=== PATIENT | female | born 1930 | race Caucasian/White ===

== ENCOUNTER 2018-06-18 05:06 | Emergency (ER) | payer OTHER ==
[2018-06-18] MEDS ORDERED: NS 500 ML IV ONE (05:18)
[2018-06-18] MEDS ORDERED: ASPIRIN 81 MG CHEWABLE TAB ONE (05:23)
[2018-06-18 05:27] LABS: PLATELET COUNT 180 10^3/uL (150-400)
[2018-06-18] MEDS ORDERED: ASPIRIN 81 MG CHEWABLE TAB PO ONE (05:27)
--- NOTE | 2018-06-18 06:22 | EDPHY ---
H & P Stated Complaint: via EMS for tachycardia and dizziness. Pt denies CP, SOB. DNR. Time Seen by Provider: 06/18/18 05:13 HPI/ROS: HPI The patient presents with palpitations which began at about 2:00 a.m. This morning and awoke her from sleep. These have been constant, associated with dizziness which she describes as a lightheaded sensation. She checked her heart rate at home and it was about 140 so this prompted her to call 911. A few months ago she had some similar symptoms that resolved on their own. She has not had any chest pain, shortness of breath. She thinks over the last few days she may have over exerted herself by going to the grocery store and doing more shopping than usual. She has no prior history of this otherwise. She has a history of possible rheumatic heart disease with some mitral valve regurgitation per her report. She is not on any medications. She uses a walker at baseline.. REVIEW OF SYSTEMS 10 systems were reviewed and negative with the exception of the elements mentioned in the history of present illness. PMHx: Reported mitral valve regurgitation, possibly related to rheumatic heart disease Soc Hx: Resides at an assisted living facility PHYSICAL General Appearance: Alert, no distress Eyes: Pupils equal and round no pallor or injection ENT, Mouth: Mucous membranes moist Respiratory: There are no retractions, lungs are clear to auscultation Cardiovascular: Regular rate and rhythm , murmur present Gastrointestinal: Abdomen is soft and non-tender, no masses, bowel sounds normal Neurological: A&O, moves all extremities Skin: Warm and dry, no rashes Musculoskeletal: Neck is supple non tender Extremities: symmetrical, full range of motion Psychiatric: Patient is oriented X 3, there is no agitation Source: Patient, EMS Exam Limitations: No limitations - Personal History Current Tetanus/Diphtheria Vaccine: Unsure Current Tetanus Diphtheria and Acellular Pertussis (TDAP): Unsure - Medical/Surgical History Hx Asthma: No Hx Chronic Respiratory Disease: No Hx Diabetes: No Hx Cardiac Disease: Yes Hx Renal Disease: No Hx Cirrhosis: No Hx Alcoholism: No Hx HIV/AIDS: No Hx Splenectomy or Spleen Trauma: No Other PMH: Mitral valve, arthritis, appendectomy, nasal reconstruction, kidney stone, , tooth extraction, uterine fibroid, T12 compressed fx. - Social History Smoking Status: Never smoked Constitutional: Initial Vital Signs Temperature (C) 36.6 C 06/18/18 05:11 Heart Rate 135 H 06/18/18 05:11 Respiratory Rate 18 06/18/18 05:11 Blood Pressure 158/102 H 06/18/18 05:11 O2 Sat (%) 96 06/18/18 05:11 O2 Delivery Mode Room Air Allergies/Adverse Reactions: No Known Allergies Allergy (Unverified 06/18/18 05:11) Home Medications: Medication Instructions Recorded Acetaminophen [Tylenol] 06/18/18 Apixaban [Eliquis] 2.5 mg PO BID #60 tab 06/18/18 Medical Decision Making - Diagnostics EKG Interpretation: EKG: Complete interpretation has been separately recorded in the [facility] archive. Summary impression: Atrial flutter with rate of 135 Repeat EKG: Complete interpretation has been separately recorded in the [facility] archive. Summary impression: Normal sinus rhythm with rate of 85 Imaging Results: Chest x-ray single view shows no cardiomegaly, no infiltrate, interpreted by me , radiology interpretation pending. Imaging: I viewed and interpreted images myself Differential Diagnosis: 88-year-old female with reported rheumatic heart disease resulting in mitral valve regurgitation presents from home with palpitations and dizziness, brought in by ambulance. EKG demonstrates atrial flutter. Patient's blood pressure is stable and she is experiencing mild dizziness. She is DNR with limited interventions as reported on her MOST form. Chest x-ray, basic labs checked in all unremarkable. Patient given small fluid bolus and spontaneously converted into a normal sinus rhythm which appeared nonischemic on repeat EKG. She felt well after this. I have calculated her chads Vasc score at 3. I have consulted with the on-call hvac field service technician Dr. Stark. He does recommend initiating Eliquis and having the patient follow up as an outpatient in the cardiology clinic. The patient has not had frequent falls though she does use a walker. I feel it is reasonable to initiate this medication and have her follow up with her primary care doctor as well as Dr. Stark. I spoke with the patient, and she does not want to start any anticoagulation. In general she does not like taking medication, she is worried that she may fall and have bleeding complication. I explained that without Eliquis she is at higher risk of stroke. She accepts this risk at this time and given her goals of care I feel this is reasonable. She would like to follow up with her primary care physician to talk further about - Data Points Laboratory Results: Laboratory Results 06/18/18 04:15 06/18/18 04:15 06/18/18 06/18/18 06/18/18 05:15 04:15 04:15 WBC 6.37 10^3/uL 10^3/uL (3.80-9.50) RBC 5.18 10^6/uL 10^6/uL (4.18-5.33) Hgb 14.9 g/dL g/dL (12.6-16.3) Hct 46.3 % % (38.0-47.0) MCV 89.4 fL fL (81.5-99.8) MCH 28.8 pg pg (27.9-34.1) MCHC 32.2 g/dL L g/dL (32.4-36.7) RDW 12.8 % % (11.5-15.2) Plt Count 180 10^3/uL 10^3/uL (150-400) MPV 11.1 fL fL (8.7-11.7) Neut % (Auto) 72.9 % % (39.3-74.2) Lymph % (Auto) 17.0 % % (15.0-45.0) [place] % (Auto) 7.5 % % (4.5-13.0) Eos % (Auto) 1.7 % % (0.6-7.6) Baso % (Auto) 0.6 % % (0.3-1.7) Nucleat RBC Rel Count 0.0 % % (0.0-0.2) Absolute Neuts (auto) 4.64 10^3/uL 10^3/uL (1.70-6.50) Absolute Lymphs (auto) 1.08 10^3/uL 10^3/uL (1.00-3.00) Absolute Monos (auto) 0.48 10^3/uL 10^3/uL (0.30-0.80) Absolute Eos (auto) 0.11 10^3/uL 10^3/uL (0.03-0.40) Absolute Basos (auto) 0.04 10^3/uL 10^3/uL (0.02-0.10) Absolute Nucleated RBC 0.00 10^3/uL 10^3/uL (0-0.01) Immature Gran % 0.3 % % (0.0-1.1) Immature Gran # 0.02 10^3/uL 10^3/uL (0.00-0.10) D-Dimer Sodium 138 mEq/L mEq/L (135-145) Potassium 3.8 mEq/L mEq/L (3.5-5.2) Chloride 101 mEq/L mEq/L (97-110) Carbon Dioxide 25 mEq/l mEq/l (22-31) Anion Gap 12 mEq/L mEq/L (6-14) BUN 18 mg/dL mg/dL (7-23) Creatinine 1.1 mg/dL H mg/dL (0.6-1.0) Estimated GFR 47 Glucose 119 mg/dL H mg/dL (70-100) Calcium 9.9 mg/dL mg/dL (8.5-10.4) POC Troponin I 0.01 ng/mL ng/mL (0.00-0.08) NT-Pro-B Natriuret Pep 285 pg/mL pg/mL (0-450) 06/18/18 04:00 WBC RBC Hgb Hct MCV MCH MCHC RDW Plt Count MPV Neut % (Auto) Lymph % (Auto) [place] % (Auto) Eos % (Auto) Baso % (Auto) Nucleat RBC Rel Count Absolute Neuts (auto) Absolute Lymphs (auto) Absolute Monos (auto) Absolute Eos (auto) Absolute Basos (auto) Absolute Nucleated RBC Immature Gran % Immature Gran # D-Dimer 1.97 ug/mLFEU H ug/mLFEU (0.00-0.50) Sodium Potassium Chloride Carbon Dioxide Anion Gap BUN Creatinine Estimated GFR Glucose Calcium POC Troponin I NT-Pro-B Natriuret Pep Medications Given: Discontinued Medications Aspirin (Aspirin) 324 mg PO EDNOW ONE Stop: 06/18/18 05:28 Last Admin: 06/18/18 05:28 Dose: 324 mg Sodium Chloride (Ns) 500 mls @ 0 mls/hr IV EDNOW ONE; Wide Open PRN Reason: Protocol Stop: 06/18/18 05:19 Last Admin: 06/18/18 05:27 Dose: 500 mls Point of Care Test Results: Chemistry 06/18/18 05:15 POC Troponin I 0.01 ng/mL ng/mL (0.00-0.08) Departure - Departure Disposition: Home, Routine, Self-Care Clinical Impression: Atrial flutter Qualifiers: Atrial flutter type: typical Qualified Code(s): I48.3 - Typical atrial flutter Condition: Good Instructions: Atrial Flutter (ED) Additional Instructions: I would like for you to follow up with your primary care doctor and the hvac field service technician I have listed below for further evaluation of your palpitations. It is recommended at this time that you start a blood thinning medication or anticoagulant for prevention of stroke. If you do not want to take this, this is your choice. Referrals: Sundar Stark MD [Medical Doctor] - As per Instructions FERNANDO CALL [Non Staff Provider ()] - As per Instructions Prescriptions: Apixaban [Eliquis] 2.5 mg PO BID #60 tab
[2018-06-18 06:31] VITALS: BP 185/86
--- NOTE | 2018-06-18 22:56 | CPEKG ---
Test Reason : OPEN Blood Pressure : / mmHG Vent. Rate : 135 BPM Atrial Rate : 136 BPM P-R Int : 072 ms QRS Dur : 069 ms QT Int : 291 ms P-R-T Axes : -60 015 114 degrees QTc Int : 437 ms Atrial flutter with varied AV block, Anterior infarct, old Probable RV involvement, suggest recording right precordial leads Confirmed by Mariposa Douglas ([id number]) on 06/18/2018 10:55:41 PM Referred By: Mariposa Douglas Confirmed By:Mariposa Douglas
--- NOTE | 2018-06-21 07:41 | CPEKG ---
Test Reason : OPEN Blood Pressure : / mmHG Vent. Rate : 085 BPM Atrial Rate : 085 BPM P-R Int : 204 ms QRS Dur : 070 ms QT Int : 381 ms P-R-T Axes : 064 010 060 degrees QTc Int : 453 ms Sinus rhythm Atrial premature complex Anteroseptal infarct, old Confirmed by Mariposa Douglas ([id number]) on 06/21/2018 7:40:34 AM Referred By: Mariposa Douglas Confirmed By:Mariposa Douglas
== END 2018-06-18 06:41 | disposition home or self-care (01) ==
LOC: EDUNIT#
DX: I48.3 Typical atrial flutter (principal); I34.0 Nonrheumatic mitral (valve) insufficiency
CPT/HCPCS: 84484-ER